=== PATIENT | male | born 1975 | race Caucasian/White ===

== ENCOUNTER 2020-03-28 10:10 | Emergency (ER) | payer SELFPAY ==
[~2020-03-28 10:10] MED LIST: ATORVASTATIN CA10 MG PO; CLARITIN10 M2 PO; FLONASE ALLER15.8 ML; KEFLEX500 MG PO; OMEPRAZOLE20 MG PO; PROZAC40 MG PO; WELLBUTRIN SR150 M1 PO; ZANAFLEX4 MG PO
[2020-03-28 11:55] LABS: HEMOGLOBIN 17.8 gm/dl (14.0-17.5); RED BLOOD COUNT 5.64 M/UL (4.20-5.50); WHITE BLOOD COUNT 6.9 K/UL (4.5-11.0)
[2020-03-28 12:21] LABS: BUN/CREATININE RATIO 8 (0-10)
[2020-03-28] MEDS ORDERED: PROTONIX40 MG PO (13:40)
== END 2020-03-28 13:58 | disposition home or self-care (01) ==
LOC: ER1 10:10
PROVIDERS: Physician Assistant
DX: K21.9 Gastro-esophageal reflux disease without esophagitis (principal); R10.31 Right lower quadrant pain; R10.10 Upper abdominal pain, unspecified; R19.7 Diarrhea, unspecified; R11.2 Nausea with vomiting, unspecified; M54.9 Dorsalgia, unspecified; F41.9 Anxiety disorder, unspecified; F32.9 Major depressive disorder, single episode, unspecified; Z79.899 Other long term (current) drug therapy
CPT/HCPCS: 80053; 83690; 85025; 96374; 99284; J2405; Q9967

== ENCOUNTER 2020-10-24 09:38 | Emergency (ER) | payer SELFPAY ==
[~2020-10-24 09:38] MED LIST changes: +PROTONIX40 MG PO
[2020-10-24 11:31] LABS: HEMOGLOBIN 17.1 gm/dl (14.0-17.5); RED BLOOD COUNT 5.41 M/UL (4.20-5.50); WHITE BLOOD COUNT 6.2 K/UL (4.5-11.0)
[2020-10-24 11:48] LABS: BUN/CREATININE RATIO 13 (0-10)
== END 2020-10-24 13:50 | disposition home or self-care (01) ==
LOC: ER1 09:38
PROVIDERS: Physician Assistant
DX: R10.31 Right lower quadrant pain (principal); R11.2 Nausea with vomiting, unspecified; R19.7 Diarrhea, unspecified; K21.9 Gastro-esophageal reflux disease without esophagitis; Z87.442 Personal history of urinary calculi; Z20.822 Contact with and (suspected) exposure to COVID-19
CPT/HCPCS: 80053; 81001; 83690; 85025; 86140; 96374; 96375; 99284; J1885; J2270; J2405; J7030; Q9967; U0002

== ENCOUNTER 2020-10-25 22:47 | Emergency (ER) | payer SELFPAY ==
[2020-10-26 01:11] LABS: HEMOGLOBIN 16.2 gm/dl (14.0-17.5); RED BLOOD COUNT 5.07 M/UL (4.20-5.50); WHITE BLOOD COUNT 6.6 K/UL (4.5-11.0)
[2020-10-26 01:38] LABS: BUN/CREATININE RATIO 9 (0-10)
[2020-10-26] MEDS ORDERED: MIRALAX17 GM PO (04:56)
[2020-10-26] MEDS ORDERED: ZOFRAN4 MG PO (04:56)
[2020-10-26] MEDS ORDERED: FLOMAX0.4 MG PO (04:56)
[2020-10-26] MEDS ORDERED: TORADOL 10 MG T10 MG PO (04:56)
== END 2020-10-26 05:05 | disposition home or self-care (01) ==
LOC: ER1 22:47
PROVIDERS: Physician Assistant Medical
DX: N13.2 Hydronephrosis with renal and ureteral calculous obstruction (principal); K59.00 Constipation, unspecified; K21.9 Gastro-esophageal reflux disease without esophagitis; Z90.89 Acquired absence of other organs
CPT/HCPCS: 80053; 81001; 83605; 85025; 85652; 86140; 96374; 96375; 99284; J1885; J2270; J2405

== ENCOUNTER → 2021-11-21 | Outpatient (CLI) | payer OTHER ==
[~2021-11-21] MED LIST changes: +FLOMAX0.4 MG PO; +MIRALAX17 GM PO; +TORADOL 10 MG T10 MG PO; +ZOFRAN4 MG PO
== END ==
LOC: KOH-I 09:14
DX: R79.89 Other specified abnormal findings of blood chemistry (principal); K76.0 Fatty (change of) liver, not elsewhere classified
CPT/HCPCS: 76705